=== PATIENT | female | born 1995 | race Caucasian/White ===

== ENCOUNTER → 2017-04-28 | Outpatient (CLI) | payer OTHER ==
--- NOTE | ~2017-04-28 | US5 ---
[facility] A Service of [facility] RADIOLOGY TEXT RESULTS PATIENT: LAMAR BLUE LOCATION: SG : [birth year] UNIT #: [id number] AGE: [address]: Rafael Valenzuela MD SEX: F ORDER DR: [id number] [address] [address] [id number] O MR#: [id number] Acc #: [id number] NAME: LAMAR BLUE : 1995 SEX: F STUDY DATE/TIME: 04/28/2017 9:36 UNIT: SGUS ROOM: STUDY DESCRIPTION: US Abdominal Complete Attending Physician: Rafael Valenzuela M.D. Referring Physician: Rafael Valenzuela M.D. Ordering Physician: Rafael Valenzuela M.D. Primary Care Physician: Rafael Valenzuela M.D. MEDICAL IMAGING REPORT This report is preliminary unless electronic signature is present. EXAM Abdominal ultrasound, complete, 04/28/2017. HISTORY Abdominal pain and nausea for 5 years. FINDINGS The liver is homogeneous in echotexture and demonstrates no cystic or solid mass lesions. The intra and extrahepatic bile ducts are not dilated. The gallbladder is normal with no evidence of cholelithiasis, wall thickening, or pericholecystic fluid. The common duct measures 3 mm. The pancreas and spleen are normal. The spleen measures 10.2 cm in greatest diameter. The visualized portions of the abdominal aorta and inferior vena cava are within normal limits. The kidneys are normal bilaterally. IMPRESSION Negative abdominal ultrasound. Dictated by... Gage Mensah M.D. THIS IS AN ELECTRONICALLY VERIFIED REPORT Gage Mensah M.D. at 04/28/2017 1:45 PM NELA/barbara TD: 04/28/2017 12:44 JOB #: [id number] MEDICAL IMAGING REPORT [facility] A Service [facility] RADIOLOGY TEXT RESULTS PATIENT: LAMAR BLUE LOCATION: [facility] : [birth year] UNIT #: [id number] AGE: [address]: Rafael Valenzuela MD SEX: F ORDER DR: Page 1 of 1
== END | disposition home or self-care (01) ==
LOC: SGUS 09:39
DX: R10.9 Unspecified abdominal pain (principal); R11.0 Nausea
CPT/HCPCS: 76700